=== PATIENT | male | born 1950 | race African-American/Black ===

== ENCOUNTER 2016-10-30 04:00 | Inpatient (IN) | payer MEDICARE ==
[~2016-10-30] VITALS: Ht 177.8 cm; Wt 64.4 kg
[~2016-10-30 04:00] MED LIST: ACET-868 PO; ALLO300T2 PO; ASCO250T5 PO; ASPI81TA2 PO; BISA10SU8 RC; BUME2TAB3 PO; CHOL10002 PO; COLC0.6T69 PO; ELBA1TAB PO; EPOE1VIA7 IJ; HYDR-4075 PO; ISOS120T9 PO; MIRT15TA PO; MULT1TAB11 PO; NA P133E RC; PANT40TA2 PO; POLY17PO4 PO; PRAZ1CAP5 PO; Propranolol Hcl PO; SODI650T PO; SPIR25TA PO; TAMS0.4C34 PO
--- NOTE | 2016-10-30 04:05 | NUR ---
To bed 2 a 75 yo male bibra from sn[facility] with c/o of severe pain at 10/10 on the right lower quadrant abdomen and right flank. Per patient, he has the same kind of pain when he had severe ascites. Patient noted tachypneic, saturating 98% on room air. Patient also reports of n/v. Skin warm and dry. Gowned. 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 Awaiting for er md myles.
--- NOTE | 2016-10-30 04:11 | NUR ---
Dr Londono at bedside.
[2016-10-30] MEDS ORDERED: MORPHINE SULFATE INJ 4 MG/ML DISP.SYRIN ONE ×2 (04:14→05:57)
[2016-10-30] MEDS ORDERED: IV SET PRIMARY 1 EA INFUS.SET MC ONE (04:15)
[2016-10-30] MEDS ORDERED: ONDANSETRON HCL/PF 4 MG/2 ML VIAL ONE ×2 (04:15→05:57)
[2016-10-30] MEDS ORDERED: IV NS 0.9% 500 ML IV ONE (04:15)
--- NOTE | 2016-10-30 04:21 | NUR ---
Medicated as ordered by Dr Londono.
[2016-10-30] MEDS ORDERED: MORPHINE SULFATE INJ 2 MG/ML DISP.SYRIN IV ONE ×2 (04:30→06:00)
[2016-10-30] MEDS ORDERED: ONDANSETRON HCL/PF 4 MG/2 ML VIAL IVP ONE (04:30)
[2016-10-30] MEDS ORDERED: IV NS 0.9% 500 ML BAG IV ONE (04:30)
--- NOTE | 2016-10-30 04:40 | NUR ---
general labor forklift operator at bedside.
[2016-10-30] MEDS ORDERED: ASPI81TA2 PO (04:43)
[2016-10-30] MEDS ORDERED: ATOR20TA PO (04:43)
[2016-10-30] MEDS ORDERED: ISOS30TA6 PO (04:43)
[2016-10-30] MEDS ORDERED: MIRT30TA7 PO (04:43)
[2016-10-30] MEDS ORDERED: BUME1TAB4 PO (04:43)
[2016-10-30] MEDS ORDERED: EPOE200011 SQ (04:43)
[2016-10-30] MEDS ORDERED: METO-302 PO (04:43)
[2016-10-30] MEDS ORDERED: PRAZ1CAP5 PO (04:43)
[2016-10-30] MEDS ORDERED: HYDR100T27 PO (04:43)
[2016-10-30 04:50] LABS: BASOPHILS % (AUTO) 0.1 % (0.0-2.0); HEMATOCRIT 30 % (39-51); HEMOGLOBIN 9.5 g/dL (13.5-17.5); LYMPHOCYTES # (AUTO) 0.7 /CMM (0.8-4.8); LYMPHOCYTES % (AUTO) 3.5 % (20.0-44.0); MEAN CORPUSCULAR HEMOGLOBIN 29 PG (26.0-33.0); MEAN CORPUSCULAR HGB CONC 32 g/dl (31.0-36.0); MEAN CORPUSCULAR VOLUME 90 fL (80-96); MONOCYTES # (AUTO) 1.9 /CMM (0.1-1.30); MONOCYTES % (AUTO) 9.5 % (2.0-12.0); NEUTROPHILS # (AUTO) 17.7 /CMM (1.8-8.9); NEUTROPHILS % (AUTO) 86.9 % (43.0-81.0); PLATELET COUNT (AUTO) 196 /CMM (150-450); RDW COEFFICIENT OF VARIATION 16.9 (11.5-15.0); RED BLOOD CELL COUNT(AUTO) 3.31 MIL/uL (4.5-6.0); WHITE BLOOD COUNT (AUTO) 20.4 K/uL (4.3-11.0)
[2016-10-30 04:59] LABS: CALCIUM, SERUM 8.4 mg/dL (8.5-10.1); CREATININE 3.2 mg/dL (0.6-1.3); POTASSIUM 3.6 mmol/L (3.5-5.1)
--- NOTE | 2016-10-30 05:01 | NUR ---
Patient taken to ct.
[2016-10-30 05:04] LABS: ALBUMIN 3.1 g/dL (3.4-5.0); BILIRUBIN,DIRECT 0.4 mg/dL (0.0-0.2); BILIRUBIN,TOTAL 0.8 mg/dL (0.2-1.0); TOTAL PROTEIN, SERUM 7.1 g/dL (6.4-8.2)
[2016-10-30 05:06] LABS: TROPONIN I 0.112 ng/mL (0.00-0.056)
[2016-10-30 05:09] LABS: LACTIC ACID 1.8 mmol/L (0.4-2.0)
[2016-10-30 05:16] LABS: INR 1.19 (0.87-1.13); PROTHROMBIN TIME 12.9 SECS (9.5-12.7)
--- NOTE | 2016-10-30 05:16 | NUR ---
back from ct.
[2016-10-30] MEDS ORDERED: ASPIRIN 325 MG TABLET ONE (05:18)
[2016-10-30] MEDS ORDERED: ASPIRIN 325 MG TABLET PO ONE (05:30)
--- NOTE | 2016-10-30 05:56 | NUR ---
PAGED DR URBINA AT [phone].
[2016-10-30] MEDS ORDERED: ONDANSETRON HCL/PF 4 MG/2 ML VIAL IV ONE (06:00)
--- NOTE | 2016-10-30 06:18 | NUR ---
Discussed with Dr Deal admission order of patient, orders noted, will communicate and carry out.
--- NOTE | 2016-10-30 06:29 | NUR ---
report given to Daisy VILLANUEVA for yun.
--- NOTE | 2016-10-30 06:45 | NUR ---
Transported to 310 tele 3rd floor via [facility] protocol without incident noted.
--- NOTE | 2016-10-30 06:45 | NUR ---
HOB MACHINE OPERATOR NOTE: RECEIVED PATIENT FROM ER, NO ACUTE DISTRESS NOTED. BREATHING EVEN AND UNLABORED, NO SOB NOTED. PICC LINE TO RIGHT UPPER ARM IN PLACE. TELE READING SINUS TACH 104 WITH BBB, PVC. ORIENTED PATIENT TO ROOM AND USE OF CALL LIGHT. BED LOCKED AND IN LOWEST POSITION, CALL LIGHT IN REACH. WILL CONTINUE TO MONITOR.
[2016-10-30 07:19] VITALS: BP 162/92
[2016-10-30] MEDS ORDERED: PANTOPRAZOLE 40 MG TABLET.DR PO SCH (07:54)
[2016-10-30] MEDS ORDERED: ONDANSETRON HCL/PF 4 MG/2 ML VIAL IVP PRN (08:00)
[2016-10-30] MEDS: MORPHINE SULFATE INJ 2 MG/ML DISP.SYRIN IV PRN ×2 (08:29→13:58)
[2016-10-30] MEDS: hydrALAZINE HCL 50 MG TABLET PO SCH ×3 (08:29→21:00)
--- NOTE | 2016-10-30 08:30 | NUR ---
CIVIL ENGINEERING DESIGNER NOTES PT IN BED, RESTING, AWAKE, ALERT AND ORIENTED, WITH COMPLAINT OF PAIN AT RIGHT SIDE OF ABDOMEN/FLANK AREA, PAIN MEDICATION GIVEN ORDERED, AM MEDS GIVEN ORDERED, PT FOR US GUIDED PARACENTESIS, PT INFORMED, NO COMPLAINT OF CHEST PAIN AT THIS TIME, CALL LIGHT WITHIN REACH.
--- NOTE | 2016-10-30 08:48 | NUR ---
CONSENT FOR ULTRASOUND GUIDED PARACENTESIS IS NOT SIGN YET. RICH WONG WILL NOTIFY ME SOON PATIENTS SIGNS
[2016-10-30] MEDS ORDERED: BUMETANIDE (1 MG) 1 MG TABLET PO SCH (09:00)
[2016-10-30] MEDS ORDERED: METOPROLOL SUCCINATE 25 MG TAB.SR.24H PO SCH (09:00)
[2016-10-30] MEDS ORDERED: ASPIRIN 81 MG TAB.CHEW PO SCH (09:00)
[2016-10-30] MEDS ORDERED: LEVOFLOXACIN 500 MG /D5W 100ML 500 MG in PREMIX 1 EA IV SCH ×2 (09:00→10:00)
[2016-10-30] MEDS: NITROGLYCERIN 30 GM TUBE TP SCH ×3 (09:51→18:00)
[2016-10-30] MEDS ORDERED: IV SET PRIMARY PUMP SET 1 EA INFUS.SET MC ONE (10:30)
[2016-10-30] MEDS ORDERED: IV NS 0.9% 250 ML IV ONE (10:31)
[2016-10-30] MEDS ORDERED: SECONDARY IV SET 1 EA INFUS.SET MC ONE (10:31)
--- NOTE | 2016-10-30 11:03 | NUR ---
OIL DERRICK OPERATOR NOTES S/P US GUIDED PARACENTESIS, TOLERATED WELL, SPECIMEN SENT TO LAB, SPECIMEN RECEIVED BY MOOKIE.
[2016-10-30 12:00] VITALS: BP 99/53
--- NOTE | 2016-10-30 15:30 | NUR ---
PEOPLESOFT NOTES PT IN BED, AWAKE, ALERT AND ORIENTED, PAIN MEDICATION GIVEN FOR PAIN MANAGEMENT ORDERED, CALL LIGHT WITHIN REACH, REQUESTED PT IF I CAN CHECK HIS BACK FOR ANY SKIN CONDITION, PT REFUSED TO TURN AT THIS TIME BECAUSE HE IS HAVING BACK PAIN BUT STATED THAT HE DOES NOT HAVE ANY SKIN ISSUES AT THE BACK AREA, NEEDS ATTENDED.
[2016-10-30 16:00] VITALS: BP 103/53
[2016-10-30] MEDS ORDERED: PRAZOSIN HCL 1 MG CAPSULE PO SCH (18:00)
--- NOTE | 2016-10-30 18:39 | NUR ---
DIRT SHOVELER NOTES PT IN BED, ASLEEP, EASY TO AROUSE, DENIES PAIN AT THIS TIME, RESPIRATIONS NORMAL AND NOT LABORED, CALL LIGHT WITHIN REACH, NO BLEEDING OR S/S OF INFECTION NOTED TO PICC LINE AT RIGHT UPPER ARM, PM CARE RENDERED, ASSISTED IN TURNING AND REPOSITIONING, NEEDS ATTENDED.
--- NOTE | 2016-10-30 19:27 | NUR ---
FISH HOUSE WORKER NOTES RECEIVED PT IN BED, AWAKE, ALERT AND ORIENTED X 4, VERBALLY RESPONSIVE. ABLE TO VERBALIZE NEEDS. NO ACUTE DISTRESS, NO SOB NOTED. RESPIRATION IS EVEN AND UNLABORED. ALONDRA PICC LINE INTACT AND PATENT. SKIN IS WARM AND DRY TO TOUCH. DENIES ANY PAIN OR DISCOMFORT AT THIS TIME. ALL NEEDS AT THIS TIME ATTENDED AND MET. KEPT CLEAN, DRY AND COMFORTABLE. AFEBRILE. WILL CONTINUE TO MONITOR. CALL LIGHT WITHIN REACH.
[2016-10-30 20:00] VITALS: BP 97/53
[2016-10-30] MEDS ORDERED: ATORVASTATIN 10 MG TABLET PO SCH (22:00)
[2016-10-30] MEDS ORDERED: MIRTAZAPINE 15 MG TABLET PO SCH (22:00)
[2016-10-31] VITALS (14 sets, daily range): BP systolic 27–151; BP diastolic 16–126
--- NOTE | 2016-10-31 02:45 | NUR ---
CAREER INFORMATION SPECIALIST NOTES PT ASLEEP AT THIS TIME. NO ACUTE DISTRESS, NO SOB NOTED AT THIS TIME. 02 SATURATION IS 100 % ON RA. ALL NEEDS ATTENDED. CALL LIGHT WITHIN REACH. WILL CONT TO MONITOR.
[2016-10-31] MEDS: MORPHINE SULFATE INJ 2 MG/ML DISP.SYRIN IV PRN (03:40)
[2016-10-31] MEDS: hydrALAZINE HCL 50 MG TABLET PO SCH (05:00)
[2016-10-31] MEDS: NITROGLYCERIN 30 GM TUBE TP SCH ×2 (05:04)
[2016-10-31] MEDS ORDERED: DEXTROSE 50%-WATER 50 ML DISP.SYRIN ONE ×2 (05:35→06:44)
--- NOTE | 2016-10-31 05:35 | NUR ---
PT NOTED WITH CHANGE IN LOC. VS CHECKED, PT NON RESPONSIVE. CHARGE NURSE AWARE. RAPID RESPONSE CALLED. BS CHECKED : TOO LOW AT THIS TIME, D5W IV BOLUS GIVEN , RAPID RESPONSE TOOK OVER PLACED A CALL TO DR. URBINA AND REPORTED PT'S CONDITION WITH NEW ORDERS NOTED AND CARRIED OUT. RN BUILDING ENERGY RETROFIT TECHNICIAN AT BEDSIDE.
--- NOTE | 2016-10-31 06:10 | NUR ---
PT TRANSFERRED TO ICU PER ACLS PROTOCOL. REPORT GIVEN TO RICH BRAVO.
--- NOTE | 2016-10-31 06:14 | NUR ---
RN/ICU-PT. BROUGHT FROM [facility] BY BED PER ACLS PROTOCOL S/P INTERNATIONAL BANK MANAGER FOR ALTERED RESPIRATORY STATUS. PT. AROUSABLE, BUT SOMNOLENT, BREATHING SPONTANEOUSLY TO ROOM AIR W/ O2 SUPPORT OF NRB. EKG V PACED W/ HR-48/MIN. RT AND CODE TEAM AT THE BEDSIDE AWAITING FOR ER MD TO INTUBATE PT.
--- NOTE | 2016-10-31 06:15 | NUR ---
RN/ICU-PT. ALTERED, W/ SHALLOW BREATHS, THEN PROGRESSED TO RESPIRATORY ARREST, W/ EKG VPACED ON THE 40'S. STARTED BAGGING PT. W/ BVM, CODE DAVID CALLED.
--- NOTE | 2016-10-31 06:18 | NUR ---
RN/ICU-ER MD DR. Markus SWAN HERE IN ATTENDANCE FOR ACLS PROTOCOL. DR. MCKENNA AWARE AND PRESENT AT THE BEGINNING OF CODE DAVID. Addendum: 10/31/16 at 0818 by SHELLY BRAVO RN CONTINUATION:THEN AT THIS TIME PT. LOST PULSE, PEA, CHEST COMPRESSIONS AND CONTINUOUS ACLS IN PROGRESS.
--- NOTE | 2016-10-31 06:19 | NUR ---
RN/ICU- REFER TO CODE BLUE SHEET FOR DETAILS.
[2016-10-31] MEDS ORDERED: SODIUM BICARBONATE SYR 50 MEQ/50 ML DISP.SYRIN ONE ×2 (06:26→06:32)
[2016-10-31] MEDS ORDERED: IV D5W 1,000 ML IV ONE (06:26)
[2016-10-31] MEDS ORDERED: IV SET PRIMARY PUMP SET 1 EA INFUS.SET MC ONE ×2 (06:27→06:37)
[2016-10-31] MEDS ORDERED: Sodium Bicarbonate 150 MEQ in IV D5W 1,000 ML IV PRN (06:30)
[2016-10-31] MEDS ORDERED: IV D5W 250 ML IV ONE (06:37)
[2016-10-31] MEDS ORDERED: EPINEPHRINE (1:1000) 1 MG/ML AMPUL ONE (06:37)
[2016-10-31] MEDS ORDERED: EPINEPHRINE (1:10,000) SYRINGE 1 MG/10 ML DISP.SYRIN ONE (06:43)
[2016-10-31] MEDS ORDERED: AMIODARONE 150 MG/3 ML VIAL IV ONE (06:46)
[2016-10-31 07:07] LABS: ABG BASE EXCESS -25.5 mmol/L; ABG OXYGEN SATURATION 97.6 % (92.0-98.5); ABG PCO2 18.6 mmHg (35.0-45.0); ABG PH 6.952 (7.350-7.450); ABG PO2 179.6 mmHg (75.0-100.0); ABG TOTAL HEMOGLOBIN 4.7 G/dL (13.5-18.0); AaDO2 514.8 mmHg; COHb 2.1 % (0.5-1.5); MetHb 2.1 % (0.0-1.5); O2Hb 93.5 % (94.0-97.0); SITE, ABG Right Radial; VENT MODE, BG 100% NRB
--- NOTE | 2016-10-31 07:18 | NUR ---
RN/ICU-ALL ACLS EFFORTS EXHAUSTED, PT. REMAINS PEA ,DR. SWAN SPOKE TO DR. MCKENNA BY PHONE AND PRONOUNCED PT .
--- NOTE | 2016-10-31 07:20 | NUR ---
RN/ICU-DAUGHTER ARLINE NOTIFIED BY PHONE, WILL COME TO SEE PT.
[2016-10-31] MEDS ORDERED: EPINEPHRINE (1:1000) 2 MG in IV D5W 250 ML IV PRN (07:30)
[2016-10-31] MEDS ORDERED: EPINEPHRINE (1:1000) 1 MG in IV D5W 250 ML IV PRN (07:30)
--- NOTE | 2016-10-31 07:30 | NUR ---
RN/ICU-[facility] NOTIFIED OF PT. EXPIRATION, DECLINED PT. W/ REFERRAL NO:[id number] BY CLAUDIA.
--- NOTE | 2016-10-31 07:35 | NUR ---
RN/ICU- POST MORTEM CARE DONE.
--- NOTE | 2016-10-31 07:40 | NUR ---
RN/ICU- DR. URBINA MADE AWARE OF PT. PASSING.
[2016-10-31] MEDS ORDERED: Magnesium 1 GM/2 ML VIAL IV ONE (11:08)
[2016-11-01] MEDS ORDERED: EPOETIN ALFA (20,000 UNIT) 20,000 UNIT/ML VIAL SQ SCH (09:00)
== END 2016-10-31 11:09 | disposition expired | DRG 871 ==
LOC: ER 04:02 → TELE 06:25 → ICU 10-31 06:10
PROVIDERS: ADMIT Legal Medicine; ATTEND Legal Medicine
PROC: 02HV33Z Insertion of Infusion Device into Superior Vena Cava, Percutaneous Approach (ICD-10-PCS; 2016-10-30)
PROC: B548ZZA Ultrasonography of Superior Vena Cava, Guidance (ICD-10-PCS; 2016-10-30)
PROC: 0W9G3ZZ Drainage of Peritoneal Cavity, Percutaneous Approach (ICD-10-PCS; 2016-10-30)
PROC: 5A12012 Performance of Cardiac Output, Single, Manual (ICD-10-PCS; principal; 2016-10-31)
PROC: 0BH18EZ Insertion of Endotracheal Airway into Trachea, Via Natural or Artificial Opening Endoscopic (ICD-10-PCS; 2016-10-31)
DX: A41.9 Sepsis, unspecified organism (principal); I21.4 Non-ST elevation (NSTEMI) myocardial infarction; N17.0 Acute kidney failure with tubular necrosis; J96.90 Respiratory failure, unspecified, unspecified whether with hypoxia or hypercapnia; K65.2 Spontaneous bacterial peritonitis; I13.0 Hypertensive heart and chronic kidney disease with heart failure and stage 1 through stage 4 chronic kidney disease, or unspecified chronic kidney disease; R18.8 Other ascites; I42.9 Cardiomyopathy, unspecified; K76.6 Portal hypertension; E78.5 Hyperlipidemia, unspecified; J44.9 Chronic obstructive pulmonary disease, unspecified; M10.9 Gout, unspecified; E11.22 Type 2 diabetes mellitus with diabetic chronic kidney disease; N18.9 Chronic kidney disease, unspecified; I25.10 Atherosclerotic heart disease of native coronary artery without angina pectoris; K74.60 Unspecified cirrhosis of liver; K21.0 Gastro-esophageal reflux disease with esophagitis; Z85.46 Personal history of malignant neoplasm of prostate; I50.9 Heart failure, unspecified; Z95.1 Presence of aortocoronary bypass graft; Z95.810 Presence of automatic (implantable) cardiac defibrillator; N28.89 Other specified disorders of kidney and ureter; B19.20 Unspecified viral hepatitis C without hepatic coma; I48.91 Unspecified atrial fibrillation; Z89.511 Acquired absence of right leg below knee; Z90.79 Acquired absence of other genital organ(s); E87.70 Fluid overload, unspecified; E11.51 Type 2 diabetes mellitus with diabetic peripheral angiopathy without gangrene; R65.20 Severe sepsis without septic shock
CPT/HCPCS: 36415; 36600; 71010-TC; 76942-TC; 80048-TC; 80076-TC; 82140-TC; 82962-TC; 83605-TC; 83690-TC; 83880; 84484-TC; 85025-TC; 85730-TC; 87040-TC; 87081-TC; 88305-TC; 88312-TC; 93307-TC; A4216; A4606; J0171; J0282; J1956; J2270; J2405; J3475; J3490; J7040; J7050; J7060; J7070; Z7610